=== PATIENT | male | born 1985 | race Caucasian/White ===

== ENCOUNTER 2021-06-05 19:24 | Emergency (ER) | payer SELFPAY ==
[~2021-06-05] VITALS: Ht 154.9 cm; Wt 55.0 kg
[2021-06-05] MEDS ORDERED: HYDROCODONE/ACETAMINOPHEN 5/325MG TABLET PO ONE (22:15)
[2021-06-05 22:38] VITALS: BP 153/109
[2021-06-05] MEDS ORDERED: IBUP-2029 MT (22:54)
[2021-06-05] MEDS ORDERED: ACET-2708 MT (22:54)
== END 2021-06-06 01:19 | disposition home or self-care (01) ==
LOC: ER 19:24
DX: S82.851A Displaced trimalleolar fracture of right lower leg, initial encounter for closed fracture (principal); X50.1XXA Overexertion from prolonged static or awkward postures, initial encounter; Y93.89 Activity, other specified; Y92.89 Other specified places as the place of occurrence of the external cause; Y99.8 Other external cause status
CPT/HCPCS: 29505; 73610; 99283